=== PATIENT | male | born 2000 | race Caucasian/White ===

== ENCOUNTER 2024-10-31 10:45 | Emergency (ER) | payer MEDICAID ==
[~2024-10-31] VITALS: Ht 185.4 cm; Wt 81.8 kg
[2024-10-31] MEDS ORDERED: minoxidil PO (10:58)
[2024-10-31 11:01] VITALS: BP 111/57; PULSE 78; RESP 18; TEMP 98; O2SAT 99
== END 2024-10-31 12:30 | disposition home or self-care (01) ==
LOC: EMS 10:53
DX: J02.8 Acute pharyngitis due to other specified organisms (principal); F12.90 Cannabis use, unspecified, uncomplicated
CPT/HCPCS: 87430; 99283